=== PATIENT | male | born 1970 | race Two or more races ===

== ENCOUNTER 2022-01-08 10:36 | Outpatient (CLI) | payer OTHER ==
[~2022-01-08 10:36] MED LIST: METFORMIN HCL500 MG PO
== END 2022-01-08 10:45 | disposition home or self-care (01) ==
LOC: LAB 10:36
PROVIDERS: ATTEND General Practice
DX: E78.5 Hyperlipidemia, unspecified (principal); E55.9 Vitamin D deficiency, unspecified; N39.0 Urinary tract infection, site not specified; R42 Dizziness and giddiness; R10.9 Unspecified abdominal pain; Z00.00 Encounter for general adult medical examination without abnormal findings; Z12.5 Encounter for screening for malignant neoplasm of prostate

== ENCOUNTER 2022-01-13 10:08 | Outpatient (CLI) | payer OTHER | END 2022-01-13 10:11 | disposition home or self-care (01) | LOC: NUCLEAR 10:08 | PROVIDERS: ATTEND General Practice | DX: M79.604 Pain in right leg (principal); R60.0 Localized edema ==

== ENCOUNTER 2022-01-20 10:10 | Outpatient (CLI) | payer OTHER | END 2022-01-20 10:11 | disposition home or self-care (01) | LOC: NUCLEAR 10:10 | PROVIDERS: ATTEND General Practice | DX: M79.604 Pain in right leg (principal); R60.0 Localized edema ==